=== PATIENT | female | born 1945 | race Caucasian/White ===

== ENCOUNTER 2016-11-18 23:59 | Inpatient (IN) | payer OTHER, MEDICARE ==
[~2016-11-18] VITALS: Ht 157.5 cm; Wt 65.3 kg
[2016-11-19] VITALS (36 sets, daily range): BP systolic 89–178; BP diastolic 50–97; PULSE 84–134; RESP 14–28; TEMP 96.5–99.4; O2SAT 90–99
[2016-11-19] MEDS ORDERED: ETOMIDATE 20 MG/10 ML VIAL ONE (00:25)
[2016-11-19] MEDS ORDERED: PROPOFOL 1000 MG/100 ML INJ 100 ML ONE (00:26)
[2016-11-19] MEDS ORDERED: ROCURONIUM INJ 50 MG/5 ML VIAL ONE (00:26)
[2016-11-19] MEDS ORDERED: SODIUM CHLORIDE 0.9% FLUSH 5 ML FLUSH IVF PRN (00:30)
[2016-11-19] MEDS: RESP: ALBUTEROL 2.5 MG/IPRATROPIUM 0.5 MG NEB (SCH) INH (00:40)
[2016-11-19 00:46] LABS: BLOOD GAS BASE EXCESS -5.8 mmol/L (-2-2); BLOOD GAS CARBOXYHEMOGLOBIN 2.9 % (0-4); BLOOD GAS HCO3 22 mmol/L (22-26); BLOOD GAS METHEMOGLOBIN 1.4 % (0-2); BLOOD GAS O2 HGB SATURATION 95 % (90-100); BLOOD GAS OXYGEN CONTENT 21.6 Vol % (12.0-20.0); BLOOD GAS PCO2 65 mmHG (38-42); BLOOD GAS PO2 451 mmHG (61-120); BLOOD GAS TOTAL HGB 15.3 G/DL (12.0-16.0); CRITICAL VALUE YES; OXYGEN DEVICE BIPAP; TEMP CORR TO 98.6; VENT SETTINGS 15IPAP/5EPAP
[2016-11-19 00:47] LABS: DRAW SITE LT RADIAL; FIO2 100 %; NUMBER OF ARTERIAL PUNCTURES 1; STAT YES; ULNAR PULSE PRESENT
--- NOTE | 2016-11-19 00:49 | PD ---
HPI Chief Complaint: shortness of breath Time Seen by Provider: 00:27 Travel History International Travel<30 days: No Contact w/Intl Traveler<30days: No Traveled to known affect area: No History of Present Illness HPI The patient is a 71-year-old female with a history of COPD and who still smokes one pack a day who complained of severe shortness of breath several hours before the ambulance was called. The [facility] Ambulance personnel gave her 125 Solu -Medrol and several albuterol nebulizer treatments in route. She denies any fever. She denies any history congestive heart failure. She goes to [facility] for her medical care states. [facility] Social History Tobacco Use: Yes Allergies-Medications (Allergen,Severity, Reaction): Coded Allergies: No Known Allergies (Unverified , 11/19/16) Review of Systems Except as stated in HPI: all other systems reviewed are Neg Physical Exam Narrative GENERAL: The patient is alert, oriented 3 in moderate to severe respiratory distress. The heart rate is 134, blood pressure 174/76 blood pressure and 98% oxygenation on the nonrebreather bag. SKIN: Warm and dry. No skin rash is seen. HEAD: Atraumatic. Normocephalic. EYES: Pupils equal and round. No scleral icterus. No injection or drainage. ENT: No nasal bleeding or discharge. Mucous membranes pink and moist. NECK: Trachea midline. No JVD. No neck vein distention is noted. CARDIOVASCULAR: Regular rate and rhythm. No murmur appreciated. RESPIRATORY: No accessory muscle use. Clear to auscultation. Breath sounds equal bilaterally. Markedly diminished breath sounds are heard bilaterally. GASTROINTESTINAL: Abdomen soft, non-tender, nondistended. Hepatic and splenic margins not palpable. MUSCULOSKELETAL: No obvious deformities. No clubbing. No cyanosis. No edema. NEUROLOGICAL: Awake and alert. No obvious cranial nerve deficits. Motor grossly within normal limits. Normal speech. PSYCHIATRIC: Appropriate mood and affect; insight and judgment normal. The patient is extremely anxious. Data Data Last Documented VS Vital Signs Date Time Temp Pulse Resp B/P Pulse Ox O2 Delivery O2 Flow Rate FiO2 11/19/16 04:30 88 16 119/70 BiPAP 40 11/19/16 02:15 96 11/19/16 00:10 15 Orders Etomidate Inj (Amidate Inj) (11/19/16 00:25) Propofol 1000 Mg/100 Ml Inj (Diprivan 10 (11/19/16 00:26) Rocuronium Inj (Zemuron Inj) (11/19/16 00:26) Complete Blood Count With Diff (11/19/16 00:28) Comprehensive Metabolic Panel (11/19/16 00:28) B-Type Natriuretic Peptide (11/19/16 00:28) Act Partial Throm Time (Ptt) (11/19/16 00:28) Prothrombin Time / Inr (Pt) (11/19/16 00:28) Magnesium (Mg) (11/19/16 00:28) Ckmb (Isoenzyme) Profile (11/19/16 00:28) Troponin I (11/19/16 00:28) Arterial Blood Gas (Abg) (11/19/16 00:28) Iv Access Insert/Monitor (11/19/16 00:28) Electrocardiogram (11/19/16 00:28) Ecg Monitoring (11/19/16 00:28) Oximetry (11/19/16 00:28) Oxygen Administration (11/19/16 00:28) Chest, Single Ap (11/19/16 00:28) Sodium Chloride 0.9% Flush (Ns Flush) (11/19/16 00:30) Albuterol-Ipratropium Neb (Duoneb Neb) (11/19/16 00:30) Resp Bipap / Cpap Non Invas Vt (11/19/16 ) Ondansetron Inj (Zofran Inj) (11/19/16 01:25) Insulin Human Regular Inj (Novolin R Inj (11/19/16 01:31) Furosemide Inj (Lasix Inj) (11/19/16 02:24) Furosemide Inj (Lasix Inj) (11/19/16 02:24) Ondansetron Inj (Zofran Inj) (11/19/16 01:25) Admit To Inpatient (11/19/16 ) Vital Signs (Adult) Q4H (11/19/16 03:31) Activity Oob With Assistance (11/19/16 03:31) ^ Planning Associate / Telemetry .CONTINUOUS (11/19/16 03:31) Intake + Output MARSHA.QSHIFT (11/19/16 03:31) Diet Heart Healthy (11/19/16 Breakfast) Sodium Chloride 0.9% Flush (Ns Flush) (11/19/16 03:45) Sodium Chloride 0.9% Flush (Ns Flush) (11/19/16 09:00) Ondansetron Inj (Zofran Inj) (11/19/16 03:45) Bisacodyl Supp (Dulcolax Supp) (11/19/16 03:45) Comprehensive Metabolic Panel (11/19/16 06:00) Complete Blood Count With Diff (11/19/16 06:00) Scd Bilateral/Knee High MARSHA.BID (11/19/16 03:31) Chele Bilateral/Knee High MARSHA.QSHIFT (11/19/16 03:31) Acetaminophen (Tylenol) (11/19/16 03:45) Acetamin-Hydrocod 325-5 Mg ([place] 5-325 (11/19/16 03:45) Morphine Inj (Morphine Inj) (11/19/16 03:45) Inpatient Certification (11/19/16 ) ^ Initiate Protocol (11/19/16 03:31) ^ Instruction (11/19/16 03:31) [facility] Nursing Information (11/19/16 03:45) Chlorhexidine 2% Cloth (Chlorhexidine 2% (11/19/16 04:00) Chlorhexidine 2% Cloth (Chlorhexidine 2% (11/19/16 03:45) Mrsa Pcr Surveillance (11/19/16 03:31) Albuterol-Ipratropium Neb (Duoneb Neb) (11/19/16 08:00) Albuterol-Ipratropium Neb (Duoneb Neb) (11/19/16 03:45) Budeson-Formot 160-4.5 Mg Inh (Symbicort (11/19/16 09:00) Methylprednisolone So Succ Inj (Solumedr (11/19/16 06:00) Arterial Blood Gas (Abg) (11/19/16 01:12) Urinary Catheter Insert/Apply (11/19/16 04:36) Labs Laboratory Tests Test 11/19/16 11/19/16 11/19/16 00:03 00:25 01:12 Blood Gas Puncture Site LT RADIAL RT RADIAL Blood Gas Patient Temperature 98.6 98.6 Blood Gas HCO3 22 mmol/L 24 mmol/L Blood Gas Base Excess -5.8 mmol/L -1.8 mmol/L Blood Gas Oxygen Saturation 95 % 95 % Arterial Blood pH 7.15 7.29 Arterial Blood Partial 65 mmHG 51 mmHG Pressure CO2 Arterial Blood Partial 451 mmHG 149 mmHG Pressure O2 Arterial Blood Oxygen Content 21.6 Vol % 20.2 Vol % Arterial Blood 2.9 % 2.8 % Carboxyhemoglobin Arterial Blood Methemoglobin 1.4 % 1.4 % Blood Gas Hemoglobin 15.3 G/DL 14.9 G/DL Oxygen Delivery Device BIPAP BIPAP Blood Gas Ventilator Setting 15IPAP/5EPAP 15IPAP/5EPAP Blood Gas Inspired Oxygen 100 % 50 % White Blood Count 12.5 TH/MM3 Red Blood Count 5.53 MIL/MM3 Hemoglobin 15.8 GM/DL Hematocrit 49.9 % Mean Corpuscular Volume 90.2 FL Mean Corpuscular Hemoglobin 28.6 PG Mean Corpuscular Hemoglobin 31.7 % Concent Red Cell Distribution Width 14.5 % Platelet Count 434 TH/MM3 Mean Platelet Volume 8.6 FL Neutrophils (%) (Auto) 53.4 % Lymphocytes (%) (Auto) 37.4 % Monocytes (%) (Auto) 4.6 % Eosinophils (%) (Auto) 2.6 % Basophils (%) (Auto) 2.0 % Neutrophils # (Auto) 6.6 TH/MM3 Lymphocytes # (Auto) 4.7 TH/MM3 Monocytes # (Auto) 0.6 TH/MM3 Eosinophils # (Auto) 0.3 TH/MM3 Basophils # (Auto) 0.3 TH/MM3 CBC Comment DIFF FINAL Differential Comment Prothrombin Time 11.4 SEC Prothromb Time International 1.0 RATIO Ratio Activated Partial 23.5 SEC Thromboplast Time Sodium Level 146 MEQ/L Potassium Level 4.2 MEQ/L Chloride Level 108 MEQ/L Carbon Dioxide Level 23.7 MEQ/L Anion Gap 14 MEQ/L Blood Urea Nitrogen 20 MG/DL Creatinine 1.30 MG/DL Estimat Glomerular Filtration 40 ML/MIN Rate Random Glucose 316 MG/DL Calcium Level 8.8 MG/DL Magnesium Level 2.6 MG/DL Total Bilirubin 0.4 MG/DL Aspartate Amino Transf 57 U/L (AST/SGOT) Alanine Aminotransferase 47 U/L (ALT/SGPT) Alkaline Phosphatase 151 U/L Total Creatine Kinase 66 U/L Troponin I 0.07 NG/ML B-Type Natriuretic Peptide 791 PG/ML Total Protein 7.7 GM/DL Albumin 3.7 GM/DL MDM Medical Decision Making Medical Screen Exam Complete: Yes Emergency Medical Condition: Yes Medical Record Reviewed: Yes Interpretation(s) The chest x-ray shows diffuse areas of interstitial prominence in the central and lower lungs suggesting either viral syndrome or fluid overload. The CBC shows a white count of 12,500 with a hemoglobin of 15.8 and hematocrit of 49.9. The initial blood gases show O2 saturation 95%, pH 7.15, CO2 65, PO2 451. 1 hour later the blood gases were repeated after the patient had been on BiPAP in the gases showed 7.29 pH, CO2 51, PO2 149 with O2 sat 95%. The complete metabolic profile showed a sodium of 146, BUN of 20, cranial 1.3, GFR of 40, glucose of 316, magnesium of 2.6, AST of 57, alkaline phosphatase of 151 with troponin I 0.07. The BNP is 791. The coagulation profile shows a ProTime of 11.4, INR 1.0, APTT of 23.5. The EKG shows sinus tachycardia with a rate of 124 , leftward axis and left bundle branch block. Differential Diagnosis COPD with acute exacerbation, hypoxemia, pneumonia, bronchitis, congestive heart failure, renal insufficiency, electrolyte disorder Narrative Course The patient was put on BiPAP and did respond slowly over the next half hour to where she became more alert and started answering questions quickly and appropriately. The oximetry improved and the heart rate decreased from 135- 110. It is now 0400 and the patient has put out approximately 1 L of urine. She feels much better and the vital signs are completely normal at this time. Procedures EKG Prior to Arrival: No Physician Communication Physician Communication I discussed the patient with Dr. Eden, the patient will be admitted to her. Diagnosis Primary Impression: Congestive heart failure Additional Impressions: COPD with acute exacerbation Hypoxemia Admitting Information Admitting Physician Requests: Admit Hesham Arvizu MD Nov 19, 2016 00:49 Admitting Physician Requests: Hesham Grajeda MD Nov 19, 2016 00:49
[2016-11-19 00:51] LABS: AUTOMATED NEUTROPHIL # 6.6 TH/MM3 (1.8-7.7); BASOPHIL # 0.3 TH/MM3 (0-0.2); EOSINOPHIL # 0.3 TH/MM3 (0-0.4); EOSINOPHIL % 2.6 % (0.0-4.0); HEMATOCRIT 49.9 % (35.0-46.0); LYMPH % 37.4 % (9.0-44.0); LYMPHOCYTE # 4.7 TH/MM3 (1.0-4.8); MEAN CELL VOLUME 90.2 FL (80.0-100.0); MEAN CORPUSCULAR HEMOGLOBIN 28.6 PG (27.0-34.0); MEAN CORPUSCULAR HGB CONC 31.7 % (32.0-36.0); MONO % 4.6 % (0.0-8.0); NEUT % 53.4 % (16.0-70.0); PLATELET COUNT 434 TH/MM3 (150-450); RED BLOOD COUNT 5.53 MIL/MM3 (4.00-5.30); RED CELL DISTRIBUTION WIDTH 14.5 % (11.6-17.2); WHITE BLOOD COUNT 12.5 TH/MM3 (4.0-11.0)
[2016-11-19 00:53] LABS: HEMO FLAGS DIFF FINAL
--- NOTE | 2016-11-19 00:54 | RADHPO ---
EXAM DATE/TIME: 11/19/2016 00:31 [place] COMPARISON: No previous studies available for comparison. INDICATIONS : Shortness of breath. MEDICAL HISTORY : Non-responsive SURGICAL HISTORY : Non-responsive ENCOUNTER: Initial ACUITY: 1 day PAIN SCORE: Non-responsive. LOCATION: Bilateral chest FINDINGS: Mild motion degradation of the image. The heart is upper limits normal size. There is mild prominen ce of the interstitial markings in the central and lower lungs bilaterally without focal areas of con solidation. Both hemidiaphragms are discernible. CONCLUSION: Diffuse areas of interstitial prominence central and lower lungs suggest either viral syndrome or flu id overload. Ramírez Shields MD on November 19, 2016 at 0:52 Board Certified Radiologist. This report was verified electronically.
[2016-11-19 00:58] LABS: CHLORIDE 108 MEQ/L (98-107); POTASSIUM 4.2 MEQ/L (3.5-5.1); SODIUM (NA) 146 MEQ/L (136-145)
[2016-11-19] MEDS ORDERED: ONDANSETRON HCL 4 MG/2 ML VIAL ONE (01:25)
[2016-11-19] MEDS ORDERED: ONDANSETRON HCL 4 MG/2 ML VIAL IV PUSH SCH (01:25)
[2016-11-19] MEDS ORDERED: INSULIN HUMAN REGULAR 1,000 UNITS/10 ML VIAL ONE (01:31)
[2016-11-19] MEDS ORDERED: FUROSEMIDE 40 MG/4 ML VIAL IV PUSH SCH (02:24)
[2016-11-19] MEDS ORDERED: FUROSEMIDE 40 MG/4 ML VIAL ONE (02:24)
[2016-11-19 02:31] LABS: ALKALINE PHOSPHATASE 151 U/L (45-117); ALT (GPT) 47 U/L (10-53); ANION GAP 14 MEQ/L (5-15); AST (GOT) 57 U/L (15-37); BICARBONATE 23.7 MEQ/L (21.0-32.0); BLOOD UREA NITROGEN 20 MG/DL (7-18); GLOMERULAR FILTRATION RATE 40 ML/MIN (>89); MAGNESIUM 2.6 MG/DL (1.5-2.5); TOTAL BILIRUBIN ADULT 0.4 MG/DL (0.2-1.0)
[2016-11-19 02:32] LABS: CREATINE KINASE 66 U/L (26-192)
[2016-11-19 02:51] LABS: APTT (PATIENT) 23.5 SEC (24.3-30.1); PROTHROMBIN TIME - PATIENT 11.4 SEC (9.8-11.6)
[2016-11-19] MEDS ORDERED: ACETAMINOPHEN 325 MG TAB PO PRN (03:45)
[2016-11-19] MEDS ORDERED: ACETAMINOPHEN/HYDROcodone 325 MG/5 MG TAB PO PRN (03:45)
[2016-11-19] MEDS ORDERED: ONDANSETRON HCL 4 MG/2 ML VIAL IVP PRN (03:45)
[2016-11-19] MEDS ORDERED: BISACODYL 10 MG SUPP PR PRN (03:45)
[2016-11-19] MEDS ORDERED: MISCELLANEOUS NURSING INFORMATION XX SCH (03:45)
[2016-11-19] MEDS ORDERED: MORPHINE SULFATE 4 MG/ML INJ IV PRN (03:45)
[2016-11-19] MEDS ORDERED: SODIUM CHLORIDE 0.9% FLUSH 5 ML FLUSH FLUSH PRN (03:45)
[2016-11-19] MEDS ORDERED: RESP: ALBUTEROL 2.5 MG/IPRATROPIUM 0.5 MG NEB (PRN) NEB (03:45)
[2016-11-19] MEDS ORDERED: CHLORHEXIDINE GLUCONATE 2 % 1 PACK (2 CLOTHS) TOP PRN (03:45)
[2016-11-19] MEDS: CHLORHEXIDINE GLUCONATE 2 % 1 PACK (2 CLOTHS) TOP SCH (04:00)
[2016-11-19 04:19] LABS: BLOOD GAS BASE EXCESS -1.8 mmol/L (-2-2); BLOOD GAS CARBOXYHEMOGLOBIN 2.8 % (0-4); BLOOD GAS HCO3 24 mmol/L (22-26); BLOOD GAS METHEMOGLOBIN 1.4 % (0-2); BLOOD GAS O2 HGB SATURATION 95 % (90-100); BLOOD GAS OXYGEN CONTENT 20.2 Vol % (12.0-20.0); BLOOD GAS PCO2 51 mmHG (38-42); BLOOD GAS PO2 149 mmHG (61-120); BLOOD GAS TOTAL HGB 14.9 G/DL (12.0-16.0); TEMP CORR TO 98.6
[2016-11-19 04:20] LABS: CRITICAL VALUE YES; DRAW SITE RT RADIAL; FIO2 50 %; NUMBER OF ARTERIAL PUNCTURES 1; OXYGEN DEVICE BIPAP; STAT NO; ULNAR PULSE PRESENT; VENT SETTINGS 15IPAP/5EPAP
[2016-11-19] MEDS ORDERED: ADVA100A INH ×2 (04:43)
[2016-11-19 06:12] LABS: AUTOMATED NEUTROPHIL # 16.8 TH/MM3 (1.8-7.7); BASOPHIL # 0.1 TH/MM3 (0-0.2); BASOPHIL % 0.6 % (0.0-2.0); HEMATOCRIT 47.2 % (35.0-46.0); HEMO FLAGS DIFF FINAL; LYMPH % 2.1 % (9.0-44.0); LYMPHOCYTE # 0.4 TH/MM3 (1.0-4.8); MEAN CELL VOLUME 88.4 FL (80.0-100.0); MEAN CORPUSCULAR HEMOGLOBIN 29.4 PG (27.0-34.0); MEAN CORPUSCULAR HGB CONC 33.2 % (32.0-36.0); MONO % 1.4 % (0.0-8.0); NEUT % 95.9 % (16.0-70.0); PLATELET COUNT 332 TH/MM3 (150-450); RED BLOOD COUNT 5.34 MIL/MM3 (4.00-5.30); RED CELL DISTRIBUTION WIDTH 13.7 % (11.6-17.2); WHITE BLOOD COUNT 17.5 TH/MM3 (4.0-11.0)
[2016-11-19 06:33] LABS: BICARBONATE 24.9 MEQ/L (21.0-32.0)
[2016-11-19 06:46] LABS: ALKALINE PHOSPHATASE 150 U/L (45-117); ALT (GPT) 59 U/L (10-53); ANION GAP 14 MEQ/L (5-15); AST (GOT) 54 U/L (15-37); BLOOD UREA NITROGEN 22 MG/DL (7-18); CHLORIDE 105 MEQ/L (98-107); GLOMERULAR FILTRATION RATE 40 ML/MIN (>89); POTASSIUM 3.6 MEQ/L (3.5-5.1); SODIUM (NA) 144 MEQ/L (136-145); TOTAL BILIRUBIN ADULT 0.3 MG/DL (0.2-1.0)
[2016-11-19] MEDS: RESP: ALBUTEROL 2.5 MG/IPRATROPIUM 0.5 MG NEB (SCH) NEB ×4 (07:33→20:09)
[2016-11-19] MEDS: methylPREDNISolone SOD SUCC 40 MG/1 ML VIAL IV PUSH SCH ×3 (07:36→17:37)
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
[2016-11-19] MEDS ORDERED: DEXTROSE 50% IN WATER 50 ML VIAL(D50) IV PUSH PRN (08:30)
[2016-11-19] MEDS ORDERED: GLUCAGON 1 MG/ML VIAL OTHER PRN (08:30)
[2016-11-19] MEDS ORDERED: NITROGLYCERIN 0.4 MG SL 25 TABS/BTL SL PRN (08:30)
[2016-11-19] MEDS ORDERED: ATORVASTATIN 10 MG TAB PO SCH (09:00)
[2016-11-19] MEDS: BUDESONIDE-FORMOTEROL 160/4.5 MCG INHALER INH SCH ×2 (09:12→20:46)
[2016-11-19] MEDS: SODIUM CHLORIDE 0.9% FLUSH 5 ML FLUSH FLUSH SCH ×2 (09:16→20:47)
[2016-11-19] MEDS: POTASSIUM CHLORIDE 10 MEQ CONTROLLED RELEASE TAB PO SCH ×2 (09:16→20:45)
[2016-11-19] MEDS: AZITHROMYCIN 250 MG TAB PO SCH (09:16)
[2016-11-19] MEDS: FUROSEMIDE 20 MG/2 ML VIAL IV PUSH SCH ×2 (09:16→17:37)
[2016-11-19] MEDS ORDERED: OMEP40CA2 PO (09:41)
[2016-11-19] MEDS ORDERED: LEVO75TA3 PO (09:41)
[2016-11-19 09:55] LABS: BLOOD GAS BASE EXCESS 2.1 mmol/L (-2-2); BLOOD GAS CARBOXYHEMOGLOBIN 1.4 % (0-4); BLOOD GAS HCO3 26 mmol/L (22-26); BLOOD GAS O2 HGB SATURATION 89 % (90-100); BLOOD GAS OXYGEN CONTENT 19.1 Vol % (12.0-20.0); BLOOD GAS PCO2 41 mmHg (38-42); BLOOD GAS PO2 59 mmHg (61-120); BLOOD GAS TOTAL HGB 15.4 G/DL (12.0-16.0)
[2016-11-19 09:56] LABS: CRITICAL VALUE YES; DRAW SITE RT RADIAL; LITER FLOW 4 L/M; NUMBER OF ARTERIAL PUNCTURES 1; OXYGEN DEVICE NASAL CANNULA; STAT NO; ULNAR PULSE PRESENT
[2016-11-19 11:47] LABS: LDL CHOLESTEROL 146 MG/DL (0-99)
[2016-11-19 11:50] LABS: GLUCOSE,URINE NEG (NEG); KETONE, URINE NEG (NEG); NITRITE,URINE NEG (NEG)
[2016-11-19 11:51] LABS: BLOOD, URINE MOD (NEG); METHOD OF COLLECTION CLEAN CATCH
[2016-11-19 11:52] LABS: URINE COLOR YELLOW (YELLW/STRAW)
[2016-11-19 11:55] LABS: COMMENT (UR) CULTURE INDICATED; CULTURE IF INDICATED CULTURE INDICATED; WBC, URINE 15-19 /hpf (0-5)
[2016-11-19] MEDS: INSULIN ASPART SUPPLEMENTAL SCALE SQ SCH ×3 (11:59→20:59)
[2016-11-19] MEDS: cefTRIAXone INJ 1,000 MG in SODIUM CHLORIDE 0.9% INJ 100 ML IV SCH (11:59)
--- NOTE | 2016-11-19 12:13 | EC ---
Study Study Date:11/19/2016 STUDY CONCLUSIONS SUMMARY LEFT VENTRICLE: The cavity size was normal. Wall thickness was normal. Systolic function was severely reduced. The estimated ejection fraction was in the range of 25% to 30%. Diffuse hypokinesis. If LV function is below 40, please consider prescribing an ACEI or ARB or document rationale for non-use. PROCEDURE DATA STUDY STATUS: Elective. Procedure: Transthoracic echocardiography. Image quality was suboptimal. Scanning was performed from the parasternal, apical, and subcostal acoustic windows. Study completion: The patient tolerated the procedure well. Transthoracic echocardiography. M-mode, complete 2D, complete spectral Doppler, and color Doppler. Patient status: Inpatient. CARDIAC ANATOMY LEFT VENTRICLE: Not well visualized. The cavity size was normal. Wall thickness was normal. Systolic function was severely reduced. The estimated ejection fraction was in the range of 25% to 30%. Diffuse hypokinesis. AORTIC VALVE: Poorly visualized. Mildly thickened leaflets. Doppler: Transvalvular velocity was within the normal range. There was no stenosis. No regurgitation. AORTA: Aortic root: The aortic root was normal in size. MITRAL VALVE: Poorly visualized. Mildly thickened leaflets, . Doppler: Transvalvular velocity was within the normal range. There was no evidence for stenosis. Trace to mild regurgitation. LEFT ATRIUM: The atrium was normal in size. RIGHT VENTRICLE: The cavity size was normal. Wall thickness was normal. PULMONIC VALVE: Poorly visualized. Doppler: Transvalvular velocity was within the normal range. There was no evidence for stenosis. No regurgitation. TRICUSPID VALVE: Poorly visualized. Doppler: Transvalvular velocity was within the normal range. Trace to mild regurgitation. PULMONARY ARTERY: The main pulmonary artery was normal-sized. RIGHT ATRIUM: The atrium was normal in size. PERICARDIUM: There was no pericardial effusion. SYSTEMIC VEINS: Inferior vena cava: The vessel was normal in size. BASIC MEASUREMENTS ADULT Normal Left ventricle LV internal dimension, ED, chordal level, *39.4 mm 43-52 PLAX LV internal dimension, ES, chordal level, 34.9 mm 23-38 PLAX Fractional shortening, chordal level, PLAX *11 % >29 LV posterior wall thickness, ED 11.6 mm IVS/LVPW ratio, ED 1.1 <1.3 Ventricular septum Septal thickness, ED 12.8 mm Aortic valve Leaflet separation 18 mm 15-26 Right ventricle RV internal dimension, ED, PLAX 26.2 mm 19-38 BASIC MEASUREMENTS ADULT Normal Aortic valve Leaflet separation 18 mm 15-26 Aorta Root diameter, ED 29 mm 20-37 Left atrium Anterior-posterior dimension, ES 26 mm 19-40 LA/aortic root ratio 0.9 DOPPLER MEASUREMENTS ADULT Normal Tricuspid valve Regurgitant peak velocity 294 cm/s Peak RV-RA gradient, S 35 mm Hg Maximal regurgitant velocity 294 cm/s Systemic veins Estimated CVP 10 mm Hg LEGEND: Mean values are shown as u=mean value. Asterisk (*) ramirez values outside specified normal range. Prepared and signed by Lang Cole [id number]
[2016-11-19 12:17] LABS: LACTIC ACID GHOST NOT REPORTABLE
[2016-11-19 14:16] LABS: HEMOGLOBIN A1b 1.9 %; HEMOGLOBIN Ao 83.8 %; HEMOGLOBIN LA1C 2.6 %; HEMOGLOBIN P3 4.4 %
--- NOTE | 2016-11-19 15:18 | EKG ---
Date Performed: 11/19/2016 Time Performed: 00:17:56 PTAGE: 71 years EKG: Sinus tachycardia. Possible right atrial abnormality Leftward axis Left bundle branch block Abnormal ECG NO PREVIOUS TRACING DOCTOR: Bro Galvan Interpretating Date/Time 11/19/2016 15:17:25
[2016-11-19] MEDS: NICOTINE 21 MG/24 HR PATCH TD SCH (16:06)
--- NOTE | 2016-11-19 16:07 | MB ---
cc: CHELO HARPER MD, ALAN S. M.D. DATE OF CONSULTATION 11/19/2016 REASON FOR CONSULTATION The patient is a pleasant 71-year-old white female I am seeing for COPD and congestive heart failure. HISTORY OF THE PRESENT ILLNESS The patient states perhaps 5-7 years ago she was seen by outdoor emergency care technician in [place] for an abnormal EKG. She thinks her workup was negative. She has chronic mild dyspnea on exertion and is a chronic smoker one pack per day. The patient is noncompliant and really has not followed on a routine basis with medicine. She does note that starting approximately 4 days prior to admission she had a marked increase in her dyspnea on exertion, dyspnea at rest, along with chest fullness which would occur as a constricted feeling throughout her chest when she would exert herself. She notes no pedal edema, syncope or palpitations. PAST MEDICAL HISTORY 1. COPD. 2. Tobacco abuse disorder. 3. Hyperlipidemia. 4. Hypothyroidism. 5. Benign brain tumor surgery. 6. Hysterectomy. 7. Right lower extremity surgery. 8. Cholecystectomy. 9. Left arm surgery. ALLERGIES None. She is a and smokes one pack per day. She does not drink. FAMILY HISTORY Unremarkable for premature coronary disease. MEDICATIONS Prior to admission: 1. Omeprazole. 2. Advair. 3. Thyroid. 4. For one day she did take in a nebulizer salt water. EKG shows sinus rhythm with left bundle branch block. Chest x-ray with increased interstitial markings. LABORATORY FINDINGS Initial creatinine 1.3 which has been stable. Potassium 3.6. Transaminase is minimally elevated. BNP elevated at 791. LDL 146. TSH normal. Troponins mildly elevated at 0.07 / 0.33 / 0.30 with maximum CPK of 90. PT/PTT normal. White count mildly elevated with normal hematocrit and platelet count. Blood gas showed a severe acidemia which has resolved. REVIEW OF SYSTEMS Only remarkable for occasional joint pain and the above. She also has occasional reflux type symptoms. PHYSICAL EXAMINATION GENERAL: On exam she is alert and oriented x3. VITAL SIGNS: Afebrile. Vital signs stable in a sinus rhythm. HEENT: There are no xanthelasma and oral pharyngeal mucosa normal. CHEST: Without significant deformities. There are markedly decreased breath sounds with mild bishop expiratory wheezes. JVD normal. PMI enlarged and laterally displaced. S3, S1-S2 no murmurs. ABDOMEN: Benign. EXTREMITIES: Show no cyanosis, clubbing or edema. Pulses 1-2+ throughout without bruits with 1+ pedals. She is not ambulated. Echocardiogram shows global left ventricular dysfunction with an ejection fraction of 25-30% without significant valvular disease. ASSESSMENT Problems: 1. Respiratory failure - the patient most likely has very significant underlying COPD secondary to tobacco abuse but also does have congestive heart failure. I suspect this is an ongoing process given her left bundle branch block and fact that she was referred to outdoor emergency care technician in the past. Her left ventricular dysfunction is diffuse, suggesting either a global ischemic cardiomyopathy or cardiomyopathy. 2. Elevated troponins - this is nonspecific and could be related to the acute respiratory failure alone and / or cardiomyopathy. She also may have had a non-ST elevation OH. 3. Tobacco abuse disorder. 4. Hyperlipidemia. 5. Hypothyroidism. RECOMMENDATIONS 1. Tobacco abstinence. 2. Statin therapy. 3. We will start her on low-dose Carvedilol and low-dose Entresto following routine lab work. 4. Gentle diuresis which she is doing well at this point in time. 5. Will start her on DVT prophylaxis - she is not on that at present time and I will initiate low-dose Lovenox along with baby aspirin. 6. At this point in time given her significant lung disease and severe left ventricular dysfunction, I would only manage her medically unless the situation improves. She wanted to be a do not resuscitate when she first came in, but at this point in time she is only a do not intubate but is willing to be resuscitated. All questions were answered. 7. Lang Cole MD ASG/KK /3:29 PM /3:50 PM
[2016-11-19] MEDS: ENOXAPARIN SODIUM 30 MG/0.3 ML SYRINGE SQ SCH (16:08)
--- NOTE | 2016-11-19 17:34 | EKG ---
Date Performed: 11/19/2016 Time Performed: 13:15:00 PTAGE: 71 years EKG: Sinus tachycardia. Leftward axis Left bundle branch block Abnormal ECG PREVIOUS TRACING : 11/19/2016 07.54 No significant change from previous tracing noted. DOCTOR: Jadiel Pope Interpretating Date/Time 11/19/2016 17:33:45
--- NOTE | 2016-11-19 17:42 | EKG ---
Date Performed: 11/19/2016 Time Performed: 07:54:52 PTAGE: 71 years EKG: Sinus arrhythmia. Possible right atrial abnormality Leftward axis Left bundle branch block Abnormal ECG PREVIOUS TRACING : 11/19/2016 00.17 No significant change from previous tracing noted. DOCTOR: Jadiel Pope Interpretating Date/Time 11/19/2016 17:40:58
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
[2016-11-19] MEDS: CARVEDILOL 3.125 MG TAB PO SCH (20:45)
[2016-11-19] MEDS: SACUBITRIL/VALSARTAN 24 MG-26 MG TAB PO SCH (20:46)
[2016-11-20] VITALS (19 sets, daily range): BP systolic 104–132; BP diastolic 42–68; PULSE 86–103; RESP 15–27; TEMP 95.9–98.7; O2SAT 90–98
[2016-11-20] MEDS: CHLORHEXIDINE GLUCONATE 2 % 1 PACK (2 CLOTHS) TOP SCH (04:00)
[2016-11-20] MEDS: ENOXAPARIN SODIUM 30 MG/0.3 ML SYRINGE SQ SCH ×2 (04:24→16:00)
[2016-11-20] MEDS: methylPREDNISolone SOD SUCC 40 MG/1 ML VIAL IV PUSH SCH ×5 (05:33→23:53)
[2016-11-20 05:48] LABS: CHLORIDE 102 MEQ/L (98-107); POTASSIUM 4.1 MEQ/L (3.5-5.1); SODIUM (NA) 141 MEQ/L (136-145)
[2016-11-20 06:17] LABS: ALKALINE PHOSPHATASE 108 U/L (45-117); ALT (GPT) 39 U/L (10-53); ANION GAP 8 MEQ/L (5-15); AST (GOT) 20 U/L (15-37); BICARBONATE 30.8 MEQ/L (21.0-32.0); BLOOD UREA NITROGEN 27 MG/DL (7-18); GLOMERULAR FILTRATION RATE 44 ML/MIN (>89); TOTAL BILIRUBIN ADULT 0.6 MG/DL (0.2-1.0)
[2016-11-20] MEDS: INSULIN ASPART SUPPLEMENTAL SCALE SQ SCH ×4 (06:25→20:34)
--- NOTE | 2016-11-20 08:12 | PD.CARD.PN ---
Subjective Subjective Remarks The patient has mild dyspnea which is improved. She denies chest pain, palpitations, GI symptoms or bleeding. Telemetry reveals sinus rhythm. Objective Medications Reviewed Vital Signs / I&O Vital Signs Date Time Temp Pulse Resp B/P Pulse Ox O2 Delivery O2 Flow Rate FiO2 11/20/16 06:00 88 11/20/16 06:00 95 Nasal Cannula 5.00 Humidified 11/20/16 04:23 93 Nasal Cannula 5.00 Humidified 11/20/16 04:00 86 18 108/56 96 11/20/16 04:00 86 11/20/16 03:00 92 15 124/61 94 11/20/16 03:00 92 11/20/16 02:00 88 11/20/16 00:00 96 18 105/63 98 11/20/16 00:00 98 Nasal Cannula 5.00 Humidified 11/20/16 00:00 96 11/19/16 23:10 97 Bi-Pap 11/19/16 23:00 84 11/19/16 23:00 14 90/52 97 11/19/16 22:10 97 Bi-Pap 35 11/19/16 22:10 97 35 11/19/16 22:00 90 11/19/16 22:00 16 89/50 96 11/19/16 21:00 27 114/53 97 11/19/16 21:00 112 11/19/16 20:10 95 Nasal Cannula 5.00 11/19/16 20:00 114 11/19/16 20:00 28 145/81 93 11/19/16 19:00 114 11/19/16 19:00 98.4 114 20 136/58 98 11/19/16 19:00 98 Nasal Cannula 5.00 11/19/16 18:00 106 11/19/16 16:00 104 11/19/16 16:00 99.4 106 19 117/53 96 11/19/16 15:47 94 Nasal Cannula 5.00 11/19/16 14:00 100 11/19/16 14:00 100 17 125/66 95 11/19/16 12:45 96 Nasal Cannula 5.00 11/19/16 12:00 103 11/19/16 12:00 98.4 102 18 107/60 90 11/19/16 11:13 95 Nasal Cannula 6.00 11/19/16 10:00 88 Nasal Cannula 6.00 11/19/16 10:00 100 I/O 11/19/16 11/19/16 11/19/16 11/20/16 11/20/16 11/20/16 06:59 14:59 22:59 06:59 14:59 22:59 Intake Total 720 ml 495 ml 480 ml 480 ml Output Total 2050 ml 850 ml 350 ml 400 ml Balance -1330 ml -355 ml 130 ml 80 ml Intake Oral 720 ml 360 ml 480 ml 480 ml IV Total 135 ml Output Urine Total 2050 ml 850 ml 350 ml 400 ml # Bowel Movements 0 Physical Exam GENERAL: Well-nourished, well-developed patient in no apparent distress. SKIN: Warm and dry. NECK: JVD normal - less than or equal to 5 cm H20. CARDIOVASCULAR: Regular rate and rhythm without gallops, or rubs. S3 present. RESPIRATORY: Markedly decreased breath sounds - equal bilaterally. No accessory muscle use. No wheezes, rales or rubs. PERIPHERY: No cyanosis, or edema. Laboratory Laboratory Tests Test 11/19/16 11/19/16 11/19/16 11/19/16 09:50 10:14 11:30 13:10 Blood Gas Puncture Site RT RADIAL Blood Gas Patient Temperature 37.0 Blood Gas HCO3 26 mmol/L Blood Gas Base Excess 2.1 mmol/L Blood Gas Oxygen Saturation 89 % Arterial Blood pH 7.42 Arterial Blood Partial 41 mmHg Pressure CO2 Arterial Blood Partial 59 mmHg Pressure O2 Arterial Blood Oxygen Content 19.1 Vol % Arterial Blood 1.4 % Carboxyhemoglobin Arterial Blood Methemoglobin 1.0 % Blood Gas Hemoglobin 15.4 G/DL Oxygen Delivery Device NASAL CANNULA Blood Gas Liter Flow 4 L/M Lactic Acid Level 3.5 mmol/L 6.3 mmol/L Urine Collection Type CLEAN CATCH Urine Color YELLOW Urine Turbidity CLEAR Urine pH 5.0 Urine Specific [place] 1.012 Urine Protein NEG mg/dL Urine Glucose (UA) NEG mg/dL Urine Ketones NEG mg/dL Urine Occult Blood MOD Urine Nitrite NEG Urine Bilirubin NEG Urine Leukocyte Esterase MOD Urine RBC 4-9 /hpf Urine WBC 15-19 /hpf Urine WBC Clumps MOD Microscopic Urinalysis Comment CULTURE INDICATED Total Creatine Kinase 90 U/L Troponin I 0.30 NG/ML Test 11/20/16 04:18 Sodium Level 141 MEQ/L Potassium Level 4.1 MEQ/L Chloride Level 102 MEQ/L Carbon Dioxide Level 30.8 MEQ/L Anion Gap 8 MEQ/L Blood Urea Nitrogen 27 MG/DL Creatinine 1.20 MG/DL Estimat Glomerular Filtration 44 ML/MIN Rate Random Glucose 117 MG/DL Calcium Level 8.9 MG/DL Total Bilirubin 0.6 MG/DL Aspartate Amino Transf 20 U/L (AST/SGOT) Alanine Aminotransferase 39 U/L (ALT/SGPT) Alkaline Phosphatase 108 U/L Total Protein 7.2 GM/DL Albumin 3.2 GM/DL Imaging Reviewed Assessment and Plan Assessment and Plan Problems: Acute on chronic systolic congestive heart failure COPD Tobacco abuse Hyperlipidemia Hypertension Recommendations: Continue Entresto and low-dose beta blockers. Aspirin Increased statins as the patient's liver functions have normalized most likely representing passive congestion. DVT prophylaxis Tobacco abstinence Dietary control I will sign off and be available if needed. The patient will need an ASHLEE follow-up with her PCP and I will want to see her in 2 weeks. I have left my card with her. Lang Cole MD Nov 20, 2016 08:12
[2016-11-20] MEDS: RESP: ALBUTEROL 2.5 MG/IPRATROPIUM 0.5 MG NEB (SCH) NEB ×4 (08:37→19:23)
[2016-11-20] MEDS: REMOVE OLD NICODERM (NICOTINE) PATCH TD SCH (09:00)
[2016-11-20] MEDS: BUDESONIDE-FORMOTEROL 160/4.5 MCG INHALER INH SCH ×2 (09:36→20:35)
[2016-11-20] MEDS: FUROSEMIDE 40 MG TAB PO SCH (09:36)
[2016-11-20] MEDS: AZITHROMYCIN 250 MG TAB PO SCH (09:36)
[2016-11-20] MEDS: NICOTINE 21 MG/24 HR PATCH TD SCH (09:36)
[2016-11-20] MEDS: POTASSIUM CHLORIDE 10 MEQ CONTROLLED RELEASE TAB PO SCH ×2 (09:37→20:35)
[2016-11-20] MEDS: CARVEDILOL 3.125 MG TAB PO SCH ×2 (09:39→20:35)
[2016-11-20] MEDS: ATORVASTATIN 10 MG TAB PO SCH (09:40)
[2016-11-20] MEDS ORDERED: INFLUENZA VIRUS VACCINE (QUADRIVALENT) 0.5 ML SYR IM ONE (10:00)
[2016-11-20] MEDS: SODIUM CHLORIDE 0.9% FLUSH 5 ML FLUSH FLUSH SCH ×2 (10:43→20:36)
[2016-11-20] MEDS: TIOTROPIUM BROMIDE 18 MCG INH INH SCH (10:48)
[2016-11-20] MEDS: SACUBITRIL/VALSARTAN 24 MG-26 MG TAB PO SCH ×2 (10:48→20:35)
[2016-11-20] MEDS: cefTRIAXone INJ 1,000 MG in SODIUM CHLORIDE 0.9% INJ 100 ML IV SCH (11:19)
--- NOTE | 2016-11-20 11:30 | HHI.PR ---
Subjective Remarks Patient seen and examined today with Dr. Celeste. Patient appears in good spirits. Notified her of her findings as far. She does understand. Denies any new complaints is saying that she is improving. Objective Vitals Vital Signs Date Time Temp Pulse Resp B/P Pulse Ox O2 Delivery O2 Flow Rate FiO2 11/20/16 10:11 96 11/20/16 10:00 100 22 119/63 97 11/20/16 09:00 98 15 112/56 93 11/20/16 08:40 95 Nasal Cannula 5.00 11/20/16 08:00 98.7 98 23 113/62 93 11/20/16 08:00 96 11/20/16 07:00 90 20 108/54 95 11/20/16 07:00 82 Nasal Cannula 5.00 11/20/16 06:00 88 11/20/16 06:00 95 Nasal Cannula 5.00 Humidified 11/20/16 04:23 93 Nasal Cannula 5.00 Humidified 11/20/16 04:00 86 18 108/56 96 11/20/16 04:00 86 11/20/16 03:00 92 15 124/61 94 11/20/16 03:00 92 11/20/16 02:00 88 11/20/16 00:00 96 18 105/63 98 11/20/16 00:00 98 Nasal Cannula 5.00 Humidified 11/20/16 00:00 96 11/19/16 23:10 97 Bi-Pap 11/19/16 23:00 84 11/19/16 23:00 14 90/52 97 11/19/16 22:10 97 Bi-Pap 35 11/19/16 22:10 97 35 11/19/16 22:00 90 11/19/16 22:00 16 89/50 96 11/19/16 21:00 27 114/53 97 11/19/16 21:00 112 11/19/16 20:10 95 Nasal Cannula 5.00 11/19/16 20:00 114 11/19/16 20:00 28 145/81 93 11/19/16 19:00 114 11/19/16 19:00 98.4 114 20 136/58 98 11/19/16 19:00 98 Nasal Cannula 5.00 11/19/16 18:00 106 11/19/16 16:00 104 11/19/16 16:00 99.4 106 19 117/53 96 11/19/16 15:47 94 Nasal Cannula 5.00 11/19/16 14:00 100 11/19/16 14:00 100 17 125/66 95 11/19/16 12:45 96 Nasal Cannula 5.00 11/19/16 12:00 103 11/19/16 12:00 98.4 102 18 107/60 90 I/O 11/19/16 11/19/16 11/19/16 11/20/16 11/20/16 11/20/16 07:00 15:00 23:00 07:00 15:00 23:00 Intake Total 720 ml 495 ml 480 ml 480 ml Output Total 2050 ml 850 ml 350 ml 400 ml Balance -1330 ml -355 ml 130 ml 80 ml Intake Oral 720 ml 360 ml 480 ml 480 ml IV Total 135 ml Output Urine Total 2050 ml 850 ml 350 ml 400 ml # Bowel Movements 0 Result Diagram: 11/19/16 0538 11/20/16 0418 Objective Remarks GENERAL: Well-developed, well-nourished, in no acute distress. alert and orientated HEENT: Head is normocephalic without any lesions or masses noted. Facial features are symmetric. Eyes: Extraocular muscles are intact. Conjunctivae were clear. NECK: Supple without any masses. Trachea midline no deviation. No JVD, CARDIAC: Regular rhythm, regular rate. S1/S2 are heard. No murmurs gallops or rubs. LUNGS: Clear to auscultation bilaterally. No wheeze, rhonchi or rales. No use of accessory muscles on inspiration or expiration. ABDOMEN: Soft, nontender. Nondistended. Bowel sounds heard in all 4 quadrants. No organomegaly or masses. Negative rebound, negative guarding EXTREMITIES: No edema, pulses are equal bilaterally. No cyanosis or clubbing NEUROLOGY: Mood and affect appear appropriate. Cranial nerves II through XII grossly intact. Moving all extremities, speech is clear Urinary Catheter: No Vascular Central Line Catheter: No A/P Assessment and Plan Acute hypoxic, hypercapnic respiratory failure, improving Possible etiologies could include chronic obstructive pulmonary disease exacerbation, new onset congestive heart failure, myocardial infarction Continue O2 supplementation maintain O2 sats greater than 92% Duo nebs every 4 hours and every 2 hours as needed Symbicort inhaler twice daily Pulmonology evaluated patient and following this time Chronic obstructive pulmonary disease, possible exacerbation Continue O2 supplementation Continue Solu-Medrol 40 mg every 6 hours Continue nebulizer treatments Patient will need walk study prior to discharge, to evaluate for home oxygen need Continue Zithromax Chest pain with elevated troponin, likely non-ST elevated myocardial infarction Serial cardiac enzymes did show significant increase and have plateaued at 0.30 Serial EKGs do indicate sinus arrhythmia with left bundle branch block without any changes Continue aspirin, Coreg, Entresto, Lipitor nitroglycerin as needed for chest pain Cardiology following the patient Acute congestive heart failure, systolic versus diastolic unknown Patient has been having progressive dyspnea on exertion, shortness of breath, paroxysmal nocturnal dyspnea Chest x-ray indicating possible fluid overload versus bowel syndrome Elevated BNP Continue Lasix 20 mg IV twice daily with potassium 10 mEq by mouth twice daily Ramos placed for accurate input and output Echocardiogram indicates systolic function severely reduced. Ejection fraction 25-30%. Hyperlipidemia LDL 146 Lipitor started Leukocytosis, could be stress related, steroid-induced, worsening Continue monitor CBC Lactic acid acidosis, unknown etiology could be secondary to NV, cardiac damage , sepsis Continue monitor lactic acid level Hyperglycemia No prior history of diabetes, positive family history Hemoglobin A1c 5.7 Continue Accu-Cheks with sliding scale insulin Metabolic acidosis Possible secondary to uncontrolled hyperglycemia, acute respiratory failure, acute NV Continue monitor BMP, ABG Azotemia, unknown chronicity, stable Continue monitor renal function Avoid nephrotoxins Elevated liver enzymes, mild Continue monitor Hypothyroidism Patient not taking outpatient medications TSH 0.403 Chronic tobacco use Patient counseled on cessation Medical noncompliance Patient counseled on need to have appropriate outpatient management of her chronic medical conditions in order to avoid repeat admission the hospital and likely in her case prevent DVT prevention Sequential compression devices Written by Og Arvizu PA-C, acting as scribe for Dr. Celeste on 11/20/16 at 1310. The documentation accurately reflects the work and decisions performed face-to- face by Dr. Celeste on 11/20/16 at 1310. Og Arvizu Nov 20, 2016 11:30
--- NOTE | 2016-11-20 11:51 | RADHPO ---
EXAM DATE/TIME: 11/20/2016 11:25 [facility] COMPARISON: CHEST SINGLE AP, November 19, 2016, 0:31. INDICATIONS: Short of breath MEDICAL HISTORY: Chronic obstructive pulmonary disease. Congestive heart failure. TB, SURGICAL HISTORY: None. ENCOUNTER: Subsequent ACUITY: 2 days PAIN SCORE: 0/10 LOCATION: Bilateral chest FINDINGS: There is increased aeration of the lungs compared to the previous examination. Scattered residual at electasis and/or infiltrates are noted within the lung bases. The heart is stable. CONCLUSION: 1. Interval slight increased aeration of the lungs compared to the previous examination. 2. Residual bibasilar streakiness consistent with atelectasis and/or infiltrates. John Kevin MD on November 20, 2016 at 11:43 Board Certified Radiologist. This report was verified electronically.
[2016-11-21] VITALS: BP 100/71; PULSE 90; RESP 18; TEMP 97.7; O2SAT 93
[2016-11-21] MEDS ORDERED: diphenhydrAMINE HCL 25 MG CAP PO ONE (00:15)
[2016-11-21] MEDS ORDERED: ACETAMINOPHEN 325 MG TAB PO ONE (00:15)
[2016-11-21] MEDS: CHLORHEXIDINE GLUCONATE 2 % 1 PACK (2 CLOTHS) TOP SCH (03:26)
[2016-11-21] MEDS: ENOXAPARIN SODIUM 30 MG/0.3 ML SYRINGE SQ SCH ×2 (03:55→16:00)
[2016-11-21 04:00] VITALS: BP 111/67; PULSE 92; RESP 18; TEMP 98.3; O2SAT 94
[2016-11-21 05:41] LABS: AUTOMATED NEUTROPHIL # 17.9 TH/MM3 (1.8-7.7); BASOPHIL % 0.2 % (0.0-2.0); HEMATOCRIT 42.2 % (35.0-46.0); LYMPH % 2.5 % (9.0-44.0); LYMPHOCYTE # 0.5 TH/MM3 (1.0-4.8); MEAN CELL VOLUME 88.8 FL (80.0-100.0); MEAN CORPUSCULAR HEMOGLOBIN 29.6 PG (27.0-34.0); MEAN CORPUSCULAR HGB CONC 33.3 % (32.0-36.0); MONO % 1.3 % (0.0-8.0); PLATELET COUNT 362 TH/MM3 (150-450); RED BLOOD COUNT 4.75 MIL/MM3 (4.00-5.30); RED CELL DISTRIBUTION WIDTH 13.7 % (11.6-17.2); WHITE BLOOD COUNT 18.6 TH/MM3 (4.0-11.0)
[2016-11-21 05:42] LABS: POTASSIUM 4.3 MEQ/L (3.5-5.1)
[2016-11-21 05:47] LABS: BICARBONATE 30.8 MEQ/L (21.0-32.0)
[2016-11-21] MEDS: methylPREDNISolone SOD SUCC 40 MG/1 ML VIAL IV PUSH SCH (06:01)
[2016-11-21] MEDS: INSULIN ASPART SUPPLEMENTAL SCALE SQ SCH ×3 (06:02→16:00)
[2016-11-21 06:17] LABS: HEMO FLAGS DIFF FINAL
[2016-11-21] MEDS: RESP: ALBUTEROL 2.5 MG/IPRATROPIUM 0.5 MG NEB (SCH) NEB ×3 (07:29→15:28)
--- NOTE | 2016-11-21 07:30 | RADHPO ---
EXAM DATE/TIME: 11/21/2016 07:11 [facility] COMPARISON: CHEST SINGLE AP, November 20, 2016, 11:25. INDICATIONS : Chest pain, short of breath. MEDICAL HISTORY : Chronic obstructive pulmonary disease. Congestive heart failure. SURGICAL HISTORY : None. ENCOUNTER: Subsequent ACUITY: 3 days PAIN SCORE: 1/10 LOCATION: Bilateral chest FINDINGS: Decreased atelectasis. There is improving prominence of the basilar interstitium, now minimal. No eff usion seen. No pneumothorax. Heart size stable, upper limits of normal. Subcentimeter nodular opacities project over the right midlung, I believe more conspicuous as the ate lectasis and interstitial opacities have decreased. CONCLUSION: 1. Improving pulmonary edema now minimal. Some degree of chronic interstitial lung disease possible. 2. Right midlung nonspecific nodular opacities. A noncontrast chest CT is recommended when clinically feasible. 3. Heart size stable, upper limits of normal. Quinten Gallegos MD on November 21, 2016 at 7:26 Board Certified Radiologist. This report was verified electronically.
[2016-11-21 07:32] VITALS: O2SAT 95
[2016-11-21 08:00] VITALS: BP 124/78; PULSE 89; RESP 16; TEMP 96.3; O2SAT 90
[2016-11-21] MEDS: REMOVE OLD NICODERM (NICOTINE) PATCH TD SCH (09:00)
[2016-11-21] MEDS ORDERED: CEFUROXIME AXETIL 500 MG TAB PO SCH (09:00)
[2016-11-21] MEDS ORDERED: predniSONE 10 MG TAB PO SCH (09:00)
[2016-11-21] MEDS: BUDESONIDE-FORMOTEROL 160/4.5 MCG INHALER INH SCH (09:28)
[2016-11-21] MEDS: TIOTROPIUM BROMIDE 18 MCG INH INH SCH (09:28)
[2016-11-21] MEDS: CARVEDILOL 3.125 MG TAB PO SCH (09:29)
[2016-11-21] MEDS: NICOTINE 21 MG/24 HR PATCH TD SCH (09:29)
[2016-11-21] MEDS: AZITHROMYCIN 250 MG TAB PO SCH (09:29)
[2016-11-21] MEDS: POTASSIUM CHLORIDE 10 MEQ CONTROLLED RELEASE TAB PO SCH (09:29)
[2016-11-21] MEDS: SACUBITRIL/VALSARTAN 24 MG-26 MG TAB PO SCH (09:29)
[2016-11-21] MEDS: SODIUM CHLORIDE 0.9% FLUSH 5 ML FLUSH FLUSH SCH (09:30)
[2016-11-21] MEDS: FUROSEMIDE 40 MG TAB PO SCH (09:30)
[2016-11-21] MEDS: ATORVASTATIN 10 MG TAB PO SCH (09:30)
--- NOTE | 2016-11-21 10:41 | HHI.FF ---
Face to Face Verification Diagnosis: (1) COPD with acute exacerbation (2) Hypoxemia Home Health Nursing Order: Medical education Oxygen administration education Medication education-adverse effect Population Health Coach Order: To Provide: Long range planning I have seen patient Sondra Gonzalez on 11/21/16. My clinical findings support the need for the requested home health care services because: Patient has SOB I certify that my clinical findings support that this patient is homebound because: Hx COPD- exertion dyspnea/weakness Kinza Childress MD Nov 21, 2016 10:41
[2016-11-21] MEDS ORDERED: CARV3.125 PO (10:49)
[2016-11-21] MEDS ORDERED: SPIRCAP INH (10:49)
[2016-11-21] MEDS ORDERED: SACU1TAB PO (10:49)
[2016-11-21] MEDS ORDERED: ZITH250T PO (10:49)
[2016-11-21] MEDS ORDERED: OXYGENTANK NAS.CANULA (10:49)
[2016-11-21] MEDS ORDERED: PRED10 PO (10:49)
[2016-11-21] MEDS ORDERED: CEFT500T3 PO (10:49)
[2016-11-21] MEDS ORDERED: LIPI10TA PO (10:49)
[2016-11-21] MEDS ORDERED: FURO1TAB60 PO (10:49)
--- NOTE | 2016-11-21 10:51 | HHI.DS ---
Discharge Summary Admission Date Nov 19, 2016 at 04:46 Discharge Date: Nov 21, 2016 Admitting Diagnosis congestive heart failure, COPD acute exacerbation, hypoxemia (1) Acute respiratory failure with hypoxia ICD Code: J96.01 Diagnosis: Principal (2) COPD with acute exacerbation ICD Code: J44.1 Diagnosis: Principal (3) Congestive heart failure ICD Code: I50.9 Diagnosis: Principal (4) Elevated brain natriuretic peptide (BNP) level ICD Code: R79.89 Diagnosis: Principal (5) Chest pain ICD Code: R07.9 Diagnosis: Principal (6) Paroxysmal nocturnal dyspnea ICD Code: R06.00 Diagnosis: Principal (7) Elevated troponin ICD Code: R79.89 Diagnosis: Principal (8) Metabolic acidosis ICD Code: E87.2 Diagnosis: Principal (9) Leukocytosis ICD Code: D72.829 Diagnosis: Principal (10) Azotemia ICD Code: R79.89 Diagnosis: Principal (11) Elevated liver enzymes ICD Code: R74.8 Diagnosis: Principal (12) Hyperglycemia ICD Code: R73.9 Diagnosis: Principal (13) Hypothyroidism ICD Code: E03.9 Diagnosis: Secondary (14) Medical non-compliance ICD Code: Z91.19 Diagnosis: Secondary Procedures none Brief History - From Admission 71-year-old female with known history of chronic obstructive pulmonary disease, hypothyroidism who presented to hospital because of shortness of breath, dyspnea. Patient has a rather long list of symptoms and complaints when I saw her this morning. Her presenting symptom was for the last 4 days she has had progressive shortness of breath, dyspnea on exertion. She does have history of chronic objective pulmonary disease in which she is not on any medications. She states that she did buy a nebulizer and has been using a homemade mixture with the machine. She states that she progressively getting worse until last night when she is sleeping she woke up with sudden shortness of breath, she rolled onto her side and could not breathe. She did not have the breast in order to call 911 or notify her son. She states that she slowly was able to make it out to where her son was and successfully they were able to contact 911. Patient was brought to the hospital for evaluation found to have severe hypoxic respiratory failure. Patient was given Solu-Medrol, oxygen supplementation. Patient was immediately placed on BiPAP. Lines were to intubate the patient because of her condition, however she indicated to them that she did not want to be intubated. Upon talking to her today with nursing staff present she does not want to have any intubation, CPR, defibrillation. She requests to be a DO NOT RESUSCITATE. Further findings with workup indicate congestive heart failure. Patient denies any previous history. She also has been indicating she's had chest pain for the last 3-4 days. Every time she gets up to ambulate she developed a tightness in her chest that lasts for 3-4 minutes. The pain goes away when she sits down and rest. She does get diaphoresis associated with the discomfort. She denies any nausea, vomiting. The patient moved down here from [place] to be with her son who has recently . She has not seen a doctor in 67 months. She is not on any of her regular medications. She does indicate she has an appointment with the [facility] on November 24. At the present time patient has responded to treatment well. She is on 4 L nasal cannula with good O2 saturations. However, patient with a plethora of symptoms and significant medical issues. Patient was admitted to the ICU for continued management and care. CBC/BMP: 11/21/16 0420 11/21/16 0420 Significant Findings Laboratory Tests Test 11/19/16 11/19/16 11/19/16 11/19/16 00:03 00:25 01:12 05:38 Blood Gas Base Excess -5.8 mmol/L (-2-2) Arterial Blood pH 7.15 7.29 (7.380-7.420) (7.380-7.420) Arterial Blood Partial 65 mmHG (38-42) 51 mmHG (38-42) Pressure CO2 Arterial Blood Partial 451 mmHG 149 mmHG Pressure O2 (61-120) (61-120) Arterial Blood Oxygen Content 21.6 Vol % 20.2 Vol % (12.0-20.0) (12.0-20.0) White Blood Count 12.5 TH/MM3 17.5 TH/MM3 (4.0-11.0) (4.0-11.0) Red Blood Count 5.53 MIL/MM3 5.34 MIL/MM3 (4.00-5.30) (4.00-5.30) Hemoglobin 15.8 GM/DL 15.7 GM/DL (11.6-15.3) (11.6-15.3) Hematocrit 49.9 % 47.2 % (35.0-46.0) (35.0-46.0) Mean Corpuscular Hemoglobin 31.7 % Concent (32.0-36.0) Basophils # (Auto) 0.3 TH/MM3 (0-0.2) Activated Partial 23.5 SEC Thromboplast Time (24.3-30.1) Sodium Level 146 MEQ/L (136-145) Chloride Level 108 MEQ/L (98-107) Blood Urea Nitrogen 20 MG/DL (7-18) 22 MG/DL (7-18) Creatinine 1.30 MG/DL 1.30 MG/DL (0.50-1.00) (0.50-1.00) Estimat Glomerular Filtration 40 ML/MIN (>89) 40 ML/MIN (>89) Rate Random Glucose 316 MG/DL 178 MG/DL (74-106) (74-106) Magnesium Level 2.6 MG/DL (1.5-2.5) Aspartate Amino Transf 57 U/L (15-37) 54 U/L (15-37) (AST/SGOT) Alkaline Phosphatase 151 U/L 150 U/L (45-117) (45-117) Troponin I 0.07 NG/ML (0.02-0.05) B-Type Natriuretic Peptide 791 PG/ML (0-100) Neutrophils (%) (Auto) 95.9 % (16.0-70.0) Lymphocytes (%) (Auto) 2.1 % (9.0-44.0) Neutrophils # (Auto) 16.8 TH/MM3 (1.8-7.7) Lymphocytes # (Auto) 0.4 TH/MM3 (1.0-4.8) Alanine Aminotransferase 59 U/L (10-53) (ALT/SGPT) Cholesterol Level 226 MG/DL (120-200) LDL Cholesterol 146 MG/DL (0-99) HDL Cholesterol 67.0 MG/DL (40.0-60.0) Test 11/19/16 11/19/16 11/19/16/8/17 07:50 08:05 09:50 10:14 Troponin I 0.33 NG/ML (0.02-0.05) Lactic Acid Level 4.2 mmol/L 3.5 mmol/L (0.4-2.0) (0.4-2.0) Blood Gas Base Excess 2.1 mmol/L (-2-2) Blood Gas Oxygen Saturation 89 % (90-100) Arterial Blood Partial 59 mmHg Pressure O2 (61-120) Test 11/19/16 11/19/16 11/20/16 11/21/16 11:30 13:10 04:18 04:20 Urine Occult Blood MOD (NEG) Urine Leukocyte Esterase MOD (NEG) Urine RBC 4-9 /hpf (0-3) Urine WBC 15-19 /hpf (0-5) Urine WBC Clumps MOD (NONE) Lactic Acid Level 6.3 mmol/L (0.4-2.0) Troponin I 0.30 NG/ML 0.08 NG/ML (0.02-0.05) (0.02-0.05) Blood Urea Nitrogen 27 MG/DL (7-18) 35 MG/DL (7-18) Creatinine 1.20 MG/DL 1.20 MG/DL (0.50-1.00) (0.50-1.00) Estimat Glomerular Filtration 44 ML/MIN (>89) 44 ML/MIN (>89) Rate Random Glucose 117 MG/DL 162 MG/DL (74-106) (74-106) Albumin 3.2 GM/DL (3.4-5.0) White Blood Count 18.6 TH/MM3 (4.0-11.0) Neutrophils (%) (Auto) 96.0 % (16.0-70.0) Lymphocytes (%) (Auto) 2.5 % (9.0-44.0) Neutrophils # (Auto) 17.9 TH/MM3 (1.8-7.7) Lymphocytes # (Auto) 0.5 TH/MM3 (1.0-4.8) Imaging Last Impressions Chest X-Ray 11/21/16 0700 Signed Impressions: Service Date/Time: Monday, November 21, 2016 07:11 - CONCLUSION: 1. Improving pulmonary edema now minimal. Some degree of chronic interstitial lung disease possible. 2. Right midlung nonspecific nodular opacities. A noncontrast chest CT is recommended when clinically feasible. 3. Heart size stable, upper limits of normal. Quinten Gallegos MD PE at Discharge GENERAL: Well-developed, well-nourished, in no acute distress. alert and orientated HEENT: Head is normocephalic without any lesions or masses noted. Facial features are symmetric. Eyes: Extraocular muscles are intact. Conjunctivae were clear. NECK: Supple without any masses. Trachea midline no deviation. No JVD, CARDIAC: Regular rhythm, regular rate. S1/S2 are heard. No murmurs gallops or rubs. LUNGS: Clear to auscultation bilaterally. No wheeze, rhonchi or rales. No use of accessory muscles on inspiration or expiration. ABDOMEN: Soft, nontender. Nondistended. Bowel sounds heard in all 4 quadrants. No organomegaly or masses. Negative rebound, negative guarding EXTREMITIES: No edema, pulses are equal bilaterally. No cyanosis or clubbing NEUROLOGY: Mood and affect appear appropriate. Cranial nerves II through XII grossly intact. Moving all extremities, speech is clear Pt update on day of discharge Patient seen today. Respiratory status is greatly improved. Patient without complaints and discharge plan discussed with her and case management as well as nursing team. Patient does qualify for home O2 which will be arranged Hospital Course The patient is a 71-year-old female whose seat and treated for CHF exacerbation and for COPD exacerbation. Patient did well with diuresis and was seen by cardiology team. Medications and patient adherence to medications were discussed and reinforced. Patient had hypercapnic respiratory failure which improved with DuoNeb nebs, steroids and antibiotics. Pt Condition on Discharge: Good Discharge Disposition: Disch w/ Home Health Serv Discharge Time: > 30 minutes Discharge Instructions DIET: Follow Instructions for: Heart Healthy Diet Activities you can perform: Regular-No Restrictions Follow up Referrals: Cardiology - 2 Weeks with Lang Cole MD New Medications: Cefuroxime (Ceftin) 500 Mg Tab 500 MG PO BID Infection #12 Ref 0 TAB Oxygen tank (Oxygen tank) 1 Ea Tank 2 LITER CLAU.CANULA CONTINUOUS Oxygen Concentrator Portable Gaseous 2 L/min via Nasal Cannula Continuous For 99 months HYPOXEMIA PREVENTION #1 CYLINDER Atorvastatin (Lipitor) 10 Mg Tab 40 MG PO DAILY heart #31 TAB Azithromycin (Zithromax) 250 Mg Tab 500 MG PO DAILY copd #6 TAB Carvedilol (Coreg) 3.125 Mg Tab 3.125 MG PO Q12HR heart #62 TAB Furosemide (Lasix) 40 Mg Tab 40 MG PO DAILY heart #30 TAB Prednisone (Prednisone) 10 Mg Tab 30 MG PO DAILY copd #6 TAB Sacubitril-Valsartan (Entresto) 24-26 Mg Tab 1 TAB PO BID heart #62 TAB Tiotropium Inh (Spiriva Handihaler) 18 Mcg Cap 18 MCG INH DAILY copd #31 CAP Continued Medications: Fluticasone-Salmeterol Inh (Advair Diskus Inh) 100-50 Mcg/Blist Aer 1 PUFF INH BID Rinse mouth after use. Asthma Management #1 Ref 0 INHALER Levothyroxine (Levothyroxine) 75 Mcg Tab 75 MCG PO DAILY Thyroid #30 Ref 0 TAB Omeprazole (Omeprazole) 40 Mg Cap 40 MG PO DAILY #30 Ref 0 CAP Discontinued Medications: Fluticasone-Salmeterol Inh (Advair Diskus Inh) 100-50 Mcg/Blist Aer 1 PUFF INH BID Rinse mouth after use. Asthma Management #1 Ref 0 INHALER Kizna Childress MD Nov 21, 2016 10:51
[2016-11-21 12:00] VITALS: BP 127/78; PULSE 88; RESP 16; TEMP 97; O2SAT 90
--- NOTE | 2016-11-24 08:37 | RSPPFT ---
DATE OF PROCEDURE: 11/21/16 COMMENTS: VOLUMES DYNAMIC: FVC and FEV1 moderately reduced. FLOWS: FEV1% moderately reduced; FEF 25-75 severely reduced. IMPRESSION: Moderately severe obstructive ventilatory defect with good response to bronchodilator.
== END 2016-11-21 17:44 | disposition home or self-care (01) | DRG 189 ==
LOC: PHED 23:59 → PHEDA 11-19 04:46 → PHICU 11-19 04:53 → PH3A 11-20 16:13
PROVIDERS: ADMIT Hospitalist; ATTEND Hospitalist
PROC: 5A09457 Assistance with Respiratory Ventilation, 24-96 Consecutive Hours, Continuous Positive Airway Pressure (ICD-10-PCS; principal; 2016-11-19)
DX: J96.01 Acute respiratory failure with hypoxia (principal); I21.4 Non-ST elevation (NSTEMI) myocardial infarction; I50.23 Acute on chronic systolic (congestive) heart failure; E87.2 Acidosis; J44.1 Chronic obstructive pulmonary disease with (acute) exacerbation; D72.829 Elevated white blood cell count, unspecified; R73.9 Hyperglycemia, unspecified; E03.9 Hypothyroidism, unspecified; Z91.19 Patient's noncompliance with other medical treatment and regimen; Z86.011 Personal history of benign neoplasm of the brain; F17.210 Nicotine dependence, cigarettes, uncomplicated; I44.7 Left bundle-branch block, unspecified; E78.5 Hyperlipidemia, unspecified; I10 Essential (primary) hypertension; J96.02 Acute respiratory failure with hypercapnia; Z66 Do not resuscitate
CPT/HCPCS: 36600; 51702; 71010; 80048; 80053; 80061; 81001; 82550; 82805; 82948; 83036; 83605; 83735; 83880; 84443; 84484; 85025; 85610; 85730; 87040; 87086; 87641; 87804; 90471; 90686; 93005; 93306; 94002; 94003; 94060; 94620; 94640; 94664; 96374; 96375; G0008; J0696; J1650; J1815; J1940; J2405; J2920; J7512; Q2038